=== PATIENT | female | born 1990 ===

== ENCOUNTER 2020-01-01 16:37 | Emergency (ER) | payer SELFPAY ==
[~2020-01-01] VITALS: Ht 165.1 cm; Wt 95.3 kg
[2020-01-01 17:49] VITALS: Ht 165.1 cm; Wt 95.3 kg
[2020-01-01 17:53] VITALS: BP 134/85
== END 2020-01-01 17:53 | disposition home or self-care (01) ==
LOC: ED 16:37
DX: B34.9 Viral infection, unspecified (principal); Z20.828 Contact with and (suspected) exposure to other viral communicable diseases
CPT/HCPCS: U0003-CS